=== PATIENT | male | born 1955 | race Hispanic/Latino ===

== ENCOUNTER 2017-08-12 18:55 | Emergency (ER) | payer SELFPAY ==
[2017-08-12 19:00] VITALS: BMI 23.1
[2017-08-12] MEDS ORDERED: Naloxone 0.4 mg/ml Inj (Adult) ONE ×3 (19:05→21:15)
[2017-08-12] MEDS ORDERED: Naloxone 0.4 mg/ml Inj (Adult) IVP STA (19:07)
--- NOTE | 2017-08-12 19:24 | C.PDOC ---
History Of Present Illness 61 y/o male brought in by ambulance after he was found in the street having a seizure. Patient has longstanding history of alcohol abuse. Unknown when his last drink was. EMS arrived and patient was still seizing, so ativan was given IM. EMS then gave Narcan after realizing pupils were pinpoint. Patient did wake up and talk upon arrival to the ED. On examination, pt now appears somnulent again. No obvious evidence of trauma/injury, bit tongue, or incontinence. Unable to obtain full history from patient. Time Seen by Provider: 08/12/17 19:00 Chief Complaint (Nursing): Seizure History Per: EMS History/Exam Limitations: no limitations Recent Seizure Activity Began: Just Before Arrival Number Of Seizures: One Past Medical History Reviewed: Historical Data, Nursing Documentation, Vital Signs Vital Signs: Last Vital Signs Temp 98.1 F 08/12/17 18:59 Pulse 74 08/12/17 22:46 Resp 11 L 08/12/17 22:46 BP 159/86 H 08/12/17 22:46 Pulse Ox 92 L 08/12/17 23:42 - Medical History PMH: Pancreatitis Denies: Chronic Kidney Disease Other PMH: Alcohol abuse Surgical History: Endoscopy - [facility] Procedures INJECT/INFUSE NEC (02/20/14) INTRODUCTION OF SERUM/TOX/VACCINE INTO MUSCLE, PERC APPROACH (08/21/15) Family History: States: Unknown Family Hx - Social History Hx Alcohol Use: Yes Hx Substance Use: No - Immunization History Hx Tetanus Toxoid Vaccination: No Hx Influenza Vaccination: No Hx Pneumococcal Vaccination: No Review Of Systems Review Of Systems: ROS cannot be obtained secondary to pt's inabilty to answer questions. Physical Exam - Physical Exam Skin: Normal Color, Warm, No Ecchymosis, No Other (evidence of trauma/injury) Head: Atraumatic, Normacephalic Eye(s): bilateral: Other (pinpoint pupils) Oral Mucosa: Moist Tongue: Normal Appearing, No Bite, No Laceration Neck: Normal ROM, No Midline Cervical Tenderness, Supple Chest: Symmetrical, No Deformity Cardiovascular: Rhythm Regular, No Murmur Respiratory: Normal Breath Sounds, No Rales, No Rhonchi, No Wheezing Gastrointestinal/Abdominal: Soft, No Tenderness, No Distention Extremity: Bilateral: Atraumatic, Normal Color And Temperature, Normal ROM Pulses: Left Dorsalis Pedis: Normal, Right Dorsalis Pedis: Normal Neurological/Psych: Other (Appears somnolent, unresponsive to painful stimuli on initial examination) ED Course And Treatment - Laboratory Results Result Diagrams: 08/12/17 19:29 08/12/17 19:29 Lab Interpretation: No Acute Changes (UDS + opiates and cocaine) ECG: Interpreted By Ut ECG Rhythm: Sinus Rhythm (with LVH), ST/T Changes (nonspecific) ECG Interpretation: No Acute Changes O2 Sat by Pulse Oximetry: 92 (RA) Pulse Ox Interpretation: Abnormal (with low respiratory rate. Rate increases after IV Narcan.) - CT Scan/US CT Head Other Rad Studies (CT/US): Read By Radiologist, Radiology Report Reviewed CT/US Interpretation: EXAM: CT Head Without Intravenous Contrast. CLINICAL HISTORY: 61 years old, male; Signs and symptoms; Other: Overdose. TECHNIQUE: Axial computed tomography images of the head/brain without intravenous contrast. All CT scans at this facility use at least one of these dose optimization techniques: automated. exposure control; mA and/or kV adjustment per patient size (includes targeted exams where dose is. matched to clinical indication); or iterative reconstruction. COMPARISON: No relevant prior studies available. FINDINGS: Brain: Mild small vessel ischemic/degenerative changes. Bilateral basal ganglia lacunar infarcts. No hemorrhage. Ventricles : Unremarkable. No ventriculomegaly. Bones/joints: Unremarkable. No acute fracture. Soft tissues: Unremarkable. Sinuses: Opacified left maxillary sinus with associated periosteal thickening. Mastoid air cells: Unremarkable as visualized. No mastoid effusion. IMPRESSION: 1. Opacified left maxillary sinus with associated periosteal thickening. This appears chronic. 2. Mild small vessel ischemic/degenerative changes. Progress Note: Patient is intermittently lethargic with bradypnea. Becomes responsive with increase in respiratory rate after doses of Narcan. 11:50 Patient is more easily arousable but continues to fall asleep and become bradypneic. Pupils remain pinpoint. He did wake and eat a sandwich and drink a cup of juice. Medical Decision Making Medical Decision Making: Course/treatment: On examination, patient is somnolent again. Respiratory rate 8, pupils remain pinpoint. No response to painful stimuli. Given 0.4 mg IV Narcan, pt awoke again. Initial Impression: Seizure, substance abuse, r/o intracranial bleed Plan: --Head CT --Labs Disposition - Disposition Disposition Time: 00:30 Condition: IMPROVED Forms: [facility] (Iranian) - Clinical Impression Clinical Impression: Opiate or related narcotic overdose - Scribe Statement The provider has reviewed the documentation as recorded by the Scribe (Debra Driscoll) Provider Attestation: All medical record entries made by the Scribe were at my direction and personally dictated by me. I have reviewed the chart and agree that the record accurately reflects my personal performance of the history, physical exam, medical decision making, and the department course for this patient. I have also personally directed, reviewed, and agree with the discharge instructions and disposition. Physician Patient Turnover Patient Signed Over To: Lidia Roche Handoff Comments: pending sobriety
[2017-08-12 19:33] LABS: BASO % 0.5 % (0.0-2.0); EOS # 0.1 K/uL (0.0-0.7); EOS % 1.3 % (0.0-4.0); LYMPH # 1.3 K/uL (1.0-4.3); LYMPH % 19.5 % (20.0-40.0); MEAN CELL VOLUME 89.8 fL (80.0-94.0); MEAN CORPUSCULAR HEMOGLOBIN 29.6 pg (27.0-31.0); MEAN PLATELET VOLUME 10.4 fL (7.2-11.7); MONO # 0.6 K/uL (0.0-0.8); MONO % 9.2 % (0.0-10.0); NEUT # 4.5 K/uL (1.8-7.0); NEUT % 69.5 % (50.0-75.0); RBC 4.4 Mil/uL (4.40-5.90); RED CELL DISTRIBUTION WIDTH 14.4 % (11.5-14.5); WHITE BLOOD COUNT 6.5 K/uL (4.8-10.8)
[2017-08-12 19:55] LABS: ALB/GLOB RATIO 1.2 (1.0-2.1); ALBUMIN 3.8 g/dL (3.5-5.0); ALT/SGPT 86 U/L (21-72); AST/SGOT 92 U/L (17-59); BLOOD UREA NITROGEN 13 mg/dL (9-20); GFR AFRICAN-AMERICAN > 60; GFR NON-AFRICAN AMERICAN > 60
[2017-08-12 20:24] LABS: BARBITURATES, UR NEGATIVE (NEGATIVE); BENZODIAZEPINES, UR NEGATIVE (NEGATIVE); PHENCYCLIDINE, UR NEGATIVE (NEGATIVE)
[2017-08-12] MEDS ORDERED: Naloxone 0.4 mg/ml Inj (Adult) IVP ONE ×2 (20:30→21:05)
[2017-08-12 20:31] LABS: OPIATES, UR POSITIVE (NEGATIVE)
[2017-08-13 06:05] VITALS: BP 162/88; PULSE 68; RESP 14; TEMP 98.2; O2SAT 98
--- NOTE | 2017-08-13 08:41 | CT ---
PROCEDURE: CT HEAD WITHOUT CONTRAST. HISTORY: Overdose COMPARISON: None available. TECHNIQUE: Axial computed tomography images were obtained through the head/brain without intravenous contrast. Radiation dose: Total exam DLP = 979 mGy-cm. This CT exam was performed using one or more of the following dose reduction techniques: Automated exposure control, adjustment of the mA and/or kV according to patient size, and/or use of iterative reconstruction technique. FINDINGS: HEMORRHAGE: No intracranial hemorrhage. BRAIN: No mass effect or edema. Scattered focal lucencies in the subcortical and periventricular white matter suggestive for chronic microvascular ischemic change. . Bilateral basal ganglia lacunar infarcts. VENTRICLES: Unremarkable. No hydrocephalus. CALVARIUM: Unremarkable. PARANASAL SINUSES: Opacified left maxillary sinus with associated periosteal thickening. MASTOID AIR CELLS: Unremarkable as visualized. No inflammatory changes. OTHER FINDINGS: None. IMPRESSION: Opacified left maxillary sinus with associated periosteal thickening. Chronic microvascular ischemic change. If symptoms persists, consider MRI. These findings were preliminarily reported at 8:15 p.m. on 08/12/[address] Kenton Schaefer from [facility].
--- NOTE | 2017-08-17 23:47 | CARD ---
APPROVED REPORT EKG Measurement Heart [id number] <Conclusion> Normal sinus rhythm Voltage criteria for left ventricular hypertrophy Nonspecific ST and T wave abnormality Prolonged QT Abnormal ECG
== END 2017-08-13 06:15 | disposition home or self-care (01) ==
LOC: C.ER 18:55
DX: T40.601A Poisoning by unspecified narcotics, accidental (unintentional), initial encounter (principal); Y92.9 Unspecified place or not applicable; F10.10 Alcohol abuse, uncomplicated
CPT/HCPCS: 70450; 80053; 82948; 85025; 93005; 96374; 96376; 99285; G0480; J2310